=== PATIENT | male | born 1940 | race Caucasian/White ===

== ENCOUNTER 2017-04-19 12:53 | Day surgery (SDC) | payer MEDICARE ==
[~2017-04-19 12:53] MED LIST: ACETAMINOPHEN 1,000 MG/100 ML BTL IV ONE
[2017-04-19] MEDS ORDERED: MIDAZOLAM HCL 2MG/2ML VIAL IV ONE (12:54)
[2017-04-19] MEDS ORDERED: PROPOFOL 10 MG/ML VIAL IV ONE (12:54)
[2017-04-19] MEDS ORDERED: BUPIVACAINE 0.25% MPF 30ML VIAL IVP ONE (12:54)
[2017-04-19] MEDS ORDERED: LIDOCAINE 2% MDV (20MG/ML) 20ML VIAL IV ONE (12:54)
[2017-04-19] MEDS ORDERED: FENTANYL PF 100MCG/2ML VIAL IV ONE (12:54)
[2017-04-19] MEDS ORDERED: SEVOFLURANE 250 ML INH ONE (12:54)
--- NOTE | 2017-04-20 12:31 | Operative Note ---
DATE OF SURGERY: 04/19/2017 PREOPERATIVE DIAGNOSIS: Phimosis. POSTOPERATIVE DIAGNOSIS: Phimosis. OPERATION: Adult circumcision. Anesthesia: General. PROCEDURE: Preop informed consent was obtained, antibiotics were given, sedation was administered. The patient was brought to the operating room and placed supine. General anesthetic was given. Genitalia prepped and draped in usual sterile fashion. The prepuce was retracted to allow cleansing of any residual smegma before any incision was made. An inner circumferential incision was made approximately 7 mm proximal to the coronal sulcus and following this, the foreskin was reduced and a second outer longitudinal incision was made following the contour of the glans penis. The dorsal aspect of the glans was then incised and the prepuce was then from the shaft of the penis using careful Bovie electrocautery. The specimen was passed of the field for pathology analysis. Careful hemostasis using pinpoint cautery was then obtained and the skin of the shaft of the penis was then reapproximated initially with multiple interrupted 3-0 chromic quadrant sutures, mattress quadrant sutures, and then followed by multiple 3-0 chromic mattress sutures in the intervening spaces to achieve excellent tension-free reapproximation of the skin. A penile block was then performed with 7 mL of 0.25% plain Marcaine. Bacitracin ointment was placed over the suture line, and a loosely applied 4 x 4 and Coban dressing was then applied. The procedure was terminated and patient was awakened transferred to recovery in stable condition. PLAN: The patient was given explicit postoperative instructions to remove the dressing tomorrow morning if it remains in place. If he sees any evidence of ischemia as described to him before that time, he should remove the dressing immediately. He was given a prescription for pain medication and will follow up in the [facility] in 2 weeks. CC: Dr. Hany MARTINEZ
== END 2017-04-19 16:20 | disposition home or self-care (01) ==
LOC: SUR 12:53
PROVIDERS: ATTEND Urology
DX: N47.1 Phimosis (principal); I10 Essential (primary) hypertension; E78.00 Pure hypercholesterolemia, unspecified; E11.9 Type 2 diabetes mellitus without complications; Z79.4 Long term (current) use of insulin; M10.9 Gout, unspecified
CPT/HCPCS: 54161; 00920; 88304; J3010